=== PATIENT | female | born 1955 | race Caucasian/White ===

== ENCOUNTER 2018-07-04 12:03 | Observation (INO) ==
[2018-07-04 12:08] VITALS: BMI 29.2
[2018-07-04] MEDS: NITROSTAT SL PRN ×2 (12:22→12:24)
[2018-07-04 12:29] LABS: BASOPHILS % (AUTO) 0.5 % (0.2-1.0); HEMATOCRIT 42.9 % (36.0-47.0); HEMOGLOBIN 14.4 g/dL (12.0-16.0); LYMPHOCYTES # (AUTO) 3.2 X10^3/uL (1.3-2.9); LYMPHOCYTES % (AUTO) 48.5 % (21.0-51.0); MEAN CORPUSCULAR HEMOGLOBIN 29.5 pg (27.0-34.0); MEAN CORPUSCULAR HGB CONC 33.7 g/dL (33.0-35.0); MEAN CORPUSCULAR VOLUME 87.6 fL (80.0-100.0); MEAN PLATELET VOLUME 8.1 fL (7.4-11.0); MONOCYTES # (AUTO) 0.5 x10^3/uL (0.3-0.8); MONOCYTES % (AUTO) 7.1 % (0.0-13.0); NEUTROPHILS # (AUTO) 2.9 x10^3/uL (2.2-4.8); NEUTROPHILS % (AUTO) 43.9 % (42.0-75.0); PLATELET COUNT 237 X10^3/uL (150.0-450.0); RED CELL DISTRIBUTION WIDTH 13.3 % (11.6-16.5); WHITE BLOOD COUNT 6.6 X10^3/uL (3.6-10.0)
[2018-07-04] MEDS ORDERED: NS 1000 ML 1,000 ML ONE (12:35)
--- NOTE | 2018-07-04 12:44 | RAD ---
Examination: Chest x-ray. Clinical History: Left-sided chest pain. Technique: A single portable AP view of the chest was obtained. Comparison: None available. Findings: The lungs are hypoventilated, precluding evaluation of the heart size. No pneumothorax or pleural effusion is noted. No pulmonary opacity is noted. The bones appear diffusely osteopenic. Degenerative changes are noted in the spine. No acute osseous abnormality is noted. Monitor leads are seen overlying the chest. Impression: 1. Hypoventilated lungs. Reported By:
[2018-07-04] MEDS: NS 1000 ML 1,000 ML IV SCH ×2 (12:47→21:15)
[2018-07-04 12:51] LABS: BLOOD UREA NITROGEN 10 mg/dL (7-18); CALCIUM 9.5 mg/dL (8.5-10.1); CARBON DIOXIDE 28.2 mmol/L (21-32); CHLORIDE 104 mmol/L (98-107); SODIUM 142 mmol/L (136-145); TROPONIN I 0.05 ng/mL (0-1.5); eGFR NON BLACK RACES > 60 (>60)
[2018-07-04 12:52] LABS: ALANINE AMINOTRANSFERASE 22 Units/L (12-78); ALBUMIN 4.4 g/dL (3.4-5.0); ALKALINE PHOSPHATASE 51 Units/L (46-116); ASPARTATE AMINO TRANSFERASE 24 Units/L (15-37); CKMB % 1.4 % (<4); CREATINE KINASE 72 Units/L (26-192); MAGNESIUM 1.9 mg/dL (1.7-2.9); TOTAL PROTEIN 7.5 g/dL (6.4-8.2)
--- NOTE | 2018-07-04 12:54 | DR.CP ---
HPI Time Seen Time Seen by Provider: 07/04/18 12:47 PCP Primary Care Physician: MAJOR PAUL Complaint Chief Complaint Doctor Comments: Patient reports that she had mid sternal chest pain today. She has been having left carotid pain. She is being evaluated by her architecture analyst Dr. Tipton. She has 50cclusion of the left carotid.. She denies a history of cardiac pain. She denies cigarette or alcohol use. Chief Complaint:: "CHEST PAINS AND NAUSEA, NONO RADIATING AT THE MOMENT" Self Treatment fo Chief Complaint: ASA 81 1 THIS AM Source History Provided: Patient and Parent Mode of Arrival Mode of Arrival: Ambulatory Timing Onset of Chief Complaint: 07/04/18 Location Chest Pain Radiation Location: Back Associated Signs and Symptoms Associated Signs and Symptoms: None PMH PMH Past Medical History: Yes Past Medical History: Asthma and Hypertension Past Medical History Comment: TIA Past Surgical History: Yes Surgical History: Tonsillectomy Past Surgical History Comment: TUBAL Family History History of Family Medical Conditions: Yes Family Medical History: Cancer, [place], Coronary Artery Disease, Heart Failure and Hypertension Social History Does patient currently use any type of tobacco product: No Have you used tobacco products in the last 12 months: No Type of Tobacco Use: None Does any household member use tobacco: No Alcohol Use: None Do you use any recreational Drugs:: No Lives With: Alone Lives Where: Home infectious screening In the last 2 months have you had wt loss of >10#?: NO Have you had fever, night sweats or hemotysis?: No Have you traveled outside the country in the last 6 months?: No Isolation: Standard PE Vitals Vitals: Temperature 97.9 F Pulse Rate [Right Brachial] 55 Pulse Rate 61 Respiratory Rate 17 Blood Pressure [Right Arm] 128/60 Blood Pressure 187/77 O2 Sat by Pulse Oximetry 97 General General Appearance: Alert and In No Apparent Distress Head Head Exam: Normal Inspection, Atraumatic and Normocephalic Eyes Eye exam: Normal Appearance and PERRL ENT ENT Exam: Normal Exam, Normal Oropharynx and Normal External Ear Exam Chest Chest Inspection: Normal Inspection and Symmetric Chest Wall Rise Respiratory Respiratory Exam: Normal Lung Sounds Bilat Respiratory Exam: Bilateral: Clear to Auscultation Cardiovascular Cardiovascular Exam: Regular Rate, Normal Rhythm and Normal Heart Sounds Pulse: Normal, Radial and Femoral Abdominal Exam Abdominal Exam: Normal Inspection and Normal Bowel Sounds Abdominal Tenderness: RUQ Extremities Extremities Exam: Normal Inspection and Full ROM Back Back Exam: Normal Inspection, Full ROM and (R) CVA Tenderness Neurologic Neurological Exam: Alert, Oriented X3 and CN II-XII Intact Psychiatric Psychiatric Exam: Normal Affect and Normal Mood Skin Skin Exam: Warm, Dry and Intact COURSE Consultation Called: 13:50 Consultation Comments: Dr. Cornejo agreed to admit for further evaluation ROR Labs Reviewed Laboratory Results Reviewed?: Yes Result Diagrams: 07/05/18 04:25 07/05/18 04:25 Laboratory: WBC 4.9 X10^3/uL (3.6-10.0) 07/05/18 04:25 RBC 4.36 X10^6/uL (3.5-5.4) 07/05/18 04:25 Hgb 13.1 g/dL (12.0-16.0) 07/05/18 04:25 Hct 38.3 % (36.0-47.0) 07/05/18 04:25 MCV 87.8 fL (80.0-100.0) 07/05/18 04:25 MCH 29.9 pg (27.0-34.0) 07/05/18 04:25 MCHC 34.1 g/dL (33.0-35.0) 07/05/18 04:25 RDW 13.5 % (11.6-16.5) 07/05/18 04:25 Plt Count 201 X10^3/uL (150.0-450.0) 07/05/18 04:25 MPV 8.4 fL (7.4-11.0) 07/05/18 04:25 Neut % (Auto) 32.2 % (42.0-75.0) L 07/05/18 04:25 Lymph % (Auto) 59.1 % (21.0-51.0) H 07/05/18 04:25 Nye % (Auto) 8.1 % (0.0-13.0) 07/05/18 04:25 Eos % (Auto) 0.0 % (0.9-2.9) L 07/05/18 04:25 Baso % (Auto) 0.6 % (0.2-1.0) 07/05/18 04:25 Neut # (Auto) 1.6 x10^3/uL (2.2-4.8) L 07/05/18 04:25 Lymph # (Auto) 2.9 X10^3/uL (1.3-2.9) 07/05/18 04:25 Nye # (Auto) 0.4 x10^3/uL (0.3-0.8) 07/05/18 04:25 Eos # (Auto) 0.0 x10^3/uL (0.0-0.2) 07/05/18 04:25 Baso # (Auto) 0.0 X10^3/uL (0.0-0.1) 07/05/18 04:25 Absolute Nucleated RBC 0.1 /100WBC 07/05/18 04:25 INR Target Range - 07/04/18 12:23 INR 0.96 (0.8-1.3) 07/04/18 12:23 APTT 25.4 SECONDS (22.9-36.5) 07/04/18 12:23 PTT Comment - 07/04/18 12:23 D-Dimer 149 ng/mL (0-400) 07/04/18 12:23 Sodium 143 mmol/L (136-145) 07/05/18 04:25 Corrected Sodium TNP 07/05/18 04:25 Potassium 3.8 mmol/L (3.5-5.1) 07/05/18 04:25 Chloride 107 mmol/L (98-107) 07/05/18 04:25 Carbon Dioxide 24.8 mmol/L (21-32) 07/05/18 04:25 BUN 8 mg/dL (7-18) 07/05/18 04:25 Creatinine 0.52 mg/dL (0.55-1.02) L 07/05/18 04:25 Est GFR (MDRD) Af Amer > 60 (>60) 07/05/18 04:25 Est GFR (MDRD) Non-Af > 60 (>60) 07/05/18 04:25 Glucose 82 mg/dL (65-99) 07/05/18 04:25 Calcium 8.6 mg/dL (8.5-10.1) 07/05/18 04:25 Corrected Calcium TNP 07/05/18 04:25 Magnesium 1.6 mg/dL (1.7-2.9) L 07/05/18 04:25 Total Bilirubin 0.70 mg/dL (0.2-1.0) 07/05/18 04:25 AST 17 Units/L (15-37) 07/05/18 04:25 ALT 18 Units/L (12-78) 07/05/18 04:25 Alkaline Phosphatase 45 Units/L (46-116) L 07/05/18 04:25 Creatine Kinase 41 Units/L (26-192) 07/05/18 00:40 CK-MB (CK-2) < 1.0 ng/mL (0-4.0) 07/05/18 00:40 CK/CKMB % Calc 2.4 % (<4) 07/05/18 00:40 Troponin I 0.07 ng/mL (0-1.5) 07/05/18 00:40 Total Protein 6.1 g/dL (6.4-8.2) L 07/05/18 04:25 Albumin 3.4 g/dL (3.4-5.0) 07/05/18 04:25 Globulin 2.7 g/dL (2.5-4.5) 07/05/18 04:25 Albumin/Globulin Ratio 1.3 Ratio (1.1-2.1) 07/05/18 04:25 Specimen Type Clean catch urine 07/04/18 13:38 Urine Color Straw (YELLOW) 07/04/18 13:38 Urine Appearance Clear (CLEAR) 07/04/18 13:38 Urine pH 7.0 (5.0 - 8.0) 07/04/18 13:38 Ur Specific [place] 1.010 (1.000-1.030) 07/04/18 13:38 Urine Protein Negative (NEGATIVE) 07/04/18 13:38 Urine Glucose (UA) Negative (NEGATIVE) 07/04/18 13:38 Urine Ketones Negative (NEGATIVE) 07/04/18 13:38 Urine Occult Blood Negative (NEGATIVE) 07/04/18 13:38 Urine Nitrite Negative (NEGATIVE) 07/04/18 13:38 Urine Bilirubin Negative (NEGATIVE) 07/04/18 13:38 Urine Urobilinogen Normal (NORMAL) 07/04/18 13:38 Ur Leukocyte Esterase 1+ (NEGATIVE) 07/04/18 13:38 Urine RBC 0-2 /HPF (NONE SEEN) 07/04/18 13:38 Urine WBC 0-2 /HPF (NONE SEEN) 07/04/18 13:38 Ur Squamous Epith Cells Negative /HPF (NEGATIVE) 07/04/18 13:38 Urine Bacteria Negative /HPF (NEGATIVE) 07/04/18 13:38 Ur Culture Indicated? No/not indicated 07/04/18 13:38 Other Results Comments: The lungs are hypoventilated, precluding evaluation of the heart size. No pneumothorax or pleural effusion is noted. No pulmonary opacity is noted. The bones appear diffusely osteopenic. Degenerative changes are noted in the spine. No acute osaseous abnormality is noted. XRAY XRAY Interpreted by: Radiologist ADDITIONAL NOTES Additional Notes Additional Notes: Patient admitted for chest pain protocol
[2018-07-04 13:56] LABS: BILIRUBIN,URINE NEGATIVE (NEGATIVE); BLOOD/HEMOGLOBIN,URINE NEGATIVE (NEGATIVE); GLUCOSE, URINE NEGATIVE (NEGATIVE); KETONES,URINE NEGATIVE (NEGATIVE); LEUKOCYTE ESTERASE ,URINE 1+ (NEGATIVE); NITRITES,URINE NEGATIVE (NEGATIVE); PROTEIN,URINE NEGATIVE (NEGATIVE); UROBILINOGEN,URINE NORMAL (NORMAL)
[2018-07-04 14:03] LABS: APPEARANCE,URINE CLEAR (CLEAR); BACTERIA,URINE NEGATIVE /HPF (NEGATIVE); COLOR,URINE STRAW (YELLOW); RBC,URINE 0-2 /HPF (NONE SEEN); SQUAMOUS EPITHELIAL CELL,UR NEGATIVE /HPF (NEGATIVE)
[2018-07-04 19:07] LABS: CREATINE KINASE 50 Units/L (26-192); CREATINE KINASE MB < 1.0 ng/mL (0-4.0); TROPONIN I 0.05 ng/mL (0-1.5)
[2018-07-04] MEDS ORDERED: TYLENOL 325 MG TAB PO PRN (19:14)
[2018-07-04] MEDS ORDERED: LIPITOR TAB 20 MG PO SCH (21:00)
[2018-07-05 01:25] LABS: CKMB % 2.4 % (<4); CREATINE KINASE 41 Units/L (26-192); CREATINE KINASE MB < 1.0 ng/mL (0-4.0); TROPONIN I 0.07 ng/mL (0-1.5)
[2018-07-05 05:15] LABS: BASOPHILS % (AUTO) 0.6 % (0.2-1.0); HEMATOCRIT 38.3 % (36.0-47.0); HEMOGLOBIN 13.1 g/dL (12.0-16.0); LYMPHOCYTES # (AUTO) 2.9 X10^3/uL (1.3-2.9); LYMPHOCYTES % (AUTO) 59.1 % (21.0-51.0); MEAN CORPUSCULAR HEMOGLOBIN 29.9 pg (27.0-34.0); MEAN CORPUSCULAR HGB CONC 34.1 g/dL (33.0-35.0); MEAN CORPUSCULAR VOLUME 87.8 fL (80.0-100.0); MEAN PLATELET VOLUME 8.4 fL (7.4-11.0); MONOCYTES # (AUTO) 0.4 x10^3/uL (0.3-0.8); MONOCYTES % (AUTO) 8.1 % (0.0-13.0); NEUTROPHILS # (AUTO) 1.6 x10^3/uL (2.2-4.8); NEUTROPHILS % (AUTO) 32.2 % (42.0-75.0); PLATELET COUNT 201 X10^3/uL (150.0-450.0); RED BLOOD COUNT 4.36 X10^6/uL (3.5-5.4); RED CELL DISTRIBUTION WIDTH 13.5 % (11.6-16.5); WHITE BLOOD COUNT 4.9 X10^3/uL (3.6-10.0)
[2018-07-05 05:36] LABS: ALANINE AMINOTRANSFERASE 18 Units/L (12-78); ALBUMIN 3.4 g/dL (3.4-5.0); ALKALINE PHOSPHATASE 45 Units/L (46-116); ASPARTATE AMINO TRANSFERASE 17 Units/L (15-37); BLOOD UREA NITROGEN 8 mg/dL (7-18); CALCIUM 8.6 mg/dL (8.5-10.1); CARBON DIOXIDE 24.8 mmol/L (21-32); CHLORIDE 107 mmol/L (98-107); CREATININE 0.52 mg/dL (0.55-1.02); SODIUM 143 mmol/L (136-145); TOTAL PROTEIN 6.1 g/dL (6.4-8.2); eGFR NON BLACK RACES > 60 (>60)
[2018-07-05] MEDS: NS 1000 ML 1,000 ML IV SCH ×2 (05:40→18:39)
[2018-07-05] MEDS ORDERED: POTASSIUM CHLORIDE LIQ 20 MEQ UDC PO PRN (05:48)
[2018-07-05] MEDS ORDERED: KLOR-CON PO PRN (05:48)
[2018-07-05] MEDS ORDERED: K-DUR TAB 20 MEQ PO PRN (05:48)
[2018-07-05] MEDS ORDERED: MICRO K EXTEN CAP 10 MEQ PO PRN (05:48)
[2018-07-05] MEDS ORDERED: POTASSIUM CHL 60 MEQ/NS 0.45% 500 ML IV PRN (05:48)
[2018-07-05] MEDS ORDERED: POTASSIUM CHL 40 MEQ/NS 0.45% 500 ML IV PRN (05:48)
[2018-07-05] MEDS ORDERED: K-RIDER 10 MEQ/NS 100 ML 10 MEQ/100 ML BAG IV PRN (05:48)
[2018-07-05] MEDS ORDERED: LIPITOR TAB 20 MG PO SCH (09:00)
[2018-07-05] MEDS ORDERED: PLAVIX PO SCH (09:00)
[2018-07-05] MEDS ORDERED: ASPIRIN EC 81 MG PO SCH (09:00)
[2018-07-05 10:04] LABS: CKMB % 2.2 % (<4); CREATINE KINASE 45 Units/L (26-192); CREATINE KINASE MB < 1.0 ng/mL (0-4.0); TROPONIN I 0.08 ng/mL (0-1.5)
[2018-07-05] MEDS: MAGNESIUM SULFATE 1 GRAM/100 mL PREMIX 1 GM/100 ML BAG IV PRN ×2 (13:02→14:07)
--- NOTE | 2018-07-05 13:39 | DR.H&P ---
H&P - History & Physical for Day of: H&P Date: 07/04/18 - Chief Complaint Chief Complaint: CHEST PAIN - History of Present Illness History of Present Illness: 62 WF ER ADMISSION AFTER PRESENTING WITH CO CHEST PAIN AND SOB. PT STATES HER CP WAS SHARP AND SHE TOOK 2 NITROGLYCERINE FOR PAIN RELIEF. PT HAS HX OF HTN AND HYPERLIPIDEMIA. PT WAS RECENTLY EVALUATED BY DR WHITAKER, GRAPE CRUSHER FROM [facility] AND SET UP FOR STRESS TEST LATER THIS WEEK. PT CO INCREASED OCHOA OVER LAST FEW WEEKS. PT HAS FAMILY HX OF NM AND CAD. PT REPORTS TAKING ASPIRIN AND CHOLESTEROL MEDICATION PRESCRIBED. PLAN TO ADMIT TO R/O AMI, CARDIAC WORK UP - Past Medical History Past Medical History: Asthma, Dyslipidemia, Hypertension - Past Surgical History Surgical History: Tonsillectomy - Family History Family Medical History: Cancer, [place], Coronary Artery Disease (PT'S MOTHER HAD NM, AND TRIPLE BYPASS), Heart Failure, Hypertension - Social History Does patient currently use any type of tobacco product: No Have you used tobacco products in the last 12 months: No Type of Tobacco Use: None Does any household member use tobacco: No Alcohol Use: None Drug Use: Prescription Drugs - Medications Home Medications: No Known Drug Allergies Allergy (Verified 07/04/18 12:48) CONTINUE taking the following medications aspirin 81 mg PO DAILY 07/04/18 [History] atorvastatin 20 mg PO DAILY 07/04/18 [History] clopidogrel 75 mg PO DAILY 07/04/18 [History] - Review of Systems Constitutional: Weakness Eyes: No Symptoms Reported ENT: No Symptoms Reported Respiratory: SOB with Excertion Cardiovascular: Chest Pain Gastrointestinal: No Symptoms Reported Genitourinary: No Symptoms Reported Musculoskeletal: No Symptoms Reported Skin: No Symptoms Reported Neurological: No Symptoms Reported - Physical Exam Vital Signs: Temperature 98.5 F Pulse Rate [Right Brachial] 66 Pulse Rate 61 Respiratory Rate 18 Blood Pressure [Right Arm] 143/75 Blood Pressure 187/77 O2 Sat by Pulse Oximetry 98 Oriented: Normal Eyes: Normal Ear: Normal Nose: Normal Throat: Normal Respiratory: Clear Throughout Cardiovascular: Normal : Normal Auscultation: Bowel Sounds: Normal, Absent Palpation: Normal Skin: Normal Musculoskeletal: Normal Psychiatric: Normal Mood Description: Calm Speech Pattern: Clear - Assessment/Plan (1) Chest pain Status: Acute Plan: ADMIT, SERIAL CE AND EKGS. BP AND CONTINUOUS CARDIAC MONITORING. RESUME HOME MEDICATION, ASPIRIN AND STATIN. ADMISSION CXR, SUPPLEMENTAL O2 (2) Hypertension Status: Acute (3) OCHOA (dyspnea on exertion) Status: Acute (4) Hyperlipidemia Status: Acute - Allergies Allergies/Adverse Reactions: Allergies Allergy/AdvReac Type Severity Reaction Status Date / Time No Known Drug Allergies Allergy Verified 07/04/18 12:48
[2018-07-05 15:19] LABS: CKMB % 2.4 % (<4); CREATINE KINASE 41 Units/L (26-192); CREATINE KINASE MB < 1.0 ng/mL (0-4.0); TROPONIN I 0.08 ng/mL (0-1.5)
[2018-07-05 20:11] VITALS: BP 167/71
== END 2018-07-05 20:05 | disposition short-term general hospital (02) ==
LOC: MED/SURG 12:03 → ER 12:03 → MED/SURG 15:26
PROVIDERS: ADMIT Internal Medicine; ATTEND Internal Medicine
DX: I10 Essential (primary) hypertension; R07.89 Other chest pain; R06.02 Shortness of breath; R94.31 Abnormal electrocardiogram [ECG] [EKG]; E78.2 Mixed hyperlipidemia
CPT/HCPCS: 36415; 71010; 71045; 80053; 81001; 82550; 82553; 83735; 84484; 85025; 85378; 85610; 85730; 93005; 93010; 94760; 96365; 96367; 96374; 99282; 99284; A4222; G0378; J3475; J3490; J7030

== ENCOUNTER 2024-09-24 12:19 | Observation (INO) ==
[2024-09-24 12:34] VITALS: BMI 26.4
--- NOTE | 2024-09-24 12:40 | EKG ---
Test Reason : chest pain Blood Pressure : */* mmHG Vent. Rate : 69 BPM Atrial Rate : 69 BPM P-R Int : 148 ms QRS Dur : 80 ms QT Int : 408 ms P-R-T Axes : 54 9 31 degrees QTc Int : 437 ms Normal sinus rhythm Septal infarct , age undetermined Abnormal ECG No previous ECGs available Confirmed by Anshu Chamorro MD ([id number]) on 09/25/2024 7:31:54 AM Referred By: Confirmed By: Anshu Chamorro MD
[2024-09-24 12:48] LABS: BASOPHILS # (AUTO) 0.1 X10^3/uL (0.0-0.1); EOSINOPHILS # (AUTO) 0.1 x10^3/uL (0.0-0.2); EOSINOPHILS % (AUTO) 1.6 % (0.9-2.9); HEMATOCRIT 37.8 % (36.0-47.0); HEMOGLOBIN 12.8 g/dL (12.0-16.0); LYMPHOCYTES # (AUTO) 2.4 X10^3/uL (1.3-2.9); LYMPHOCYTES % (AUTO) 45.4 % (21.0-51.0); MEAN CORPUSCULAR HEMOGLOBIN 30.6 pg (27.0-34.0); MEAN PLATELET VOLUME 7.2 fL (7.4-11.0); MONOCYTES # (AUTO) 0.6 x10^3/uL (0.3-0.8); MONOCYTES % (AUTO) 10.8 % (0.0-13.0); NEUTROPHILS # (AUTO) 2.2 x10^3/uL (2.2-4.8); NEUTROPHILS % (AUTO) 41.2 % (42.0-75.0); PLATELET COUNT 251 X10^3/uL (150.0-450.0); RED CELL DISTRIBUTION WIDTH 13.7 % (11.6-16.5); WHITE BLOOD COUNT 5.2 X10^3/uL (3.6-10.0)
[2024-09-24 13:03] LABS: ALANINE AMINOTRANSFERASE 19 Units/L (12-78); ALBUMIN 4.1 g/dL (3.4-5.0); ALKALINE PHOSPHATASE 57 Units/L (46-116); ASPARTATE AMINO TRANSFERASE 19 Units/L (15-37); BLOOD UREA NITROGEN 9 mg/dL (7-18); CALCIUM 9.4 mg/dL (8.5-10.1); CARBON DIOXIDE 29.2 mmol/L (21-32); CHLORIDE 96 mmol/L (98-107); CREATINE KINASE 39 Units/L (26-192); CREATININE 0.95 mg/dL (0.55-1.02); GLUCOSE 91 mg/dL (65-99); POTASSIUM 3.6 mmol/L (3.5-5.1); SODIUM 135 mmol/L (136-145); TOTAL PROTEIN 7.6 g/dL (6.4-8.2); eGFR NON BLACK RACES > 60 (>60)
[2024-09-24 13:06] LABS: INR 1.08 (0.8-1.3)
--- NOTE | 2024-09-24 14:00 | DR.CP ---
HPI Time Seen Time Seen by Provider: 09/24/24 12:23 PCP Primary Care Physician: ENID MENDEZ Comment HPI Comment: Patient with complaint of sudden onset chest pain today. Pain is on left side radiating to the left arm. She does have history of coronary artery disease with stents for which she takes Plavix. Patient also has history of hypertension, hyperlipidemia, GERD and allergies. Complaint Chief Complaint:: Patient states about 40 min ago she had sudden onset chest pain on the left side radiating into her left arm and left side she describes it as a sharp constant pain and it hurts worse when she breaths in and out. COVID-19 Coronavirus risk:travel/contact w/high risk person: No Has patient experienced Coronavirus symptoms: No Source History Provided: Patient Mode of Arrival Mode of Arrival: Wheelchair Timing Onset of Chief Complaint: 09/24/24 Location Chest Pain Radiation Location: Left Arm and Left Shoulder Associated Signs and Symptoms Associated Signs and Symptoms: Shortness of Breath PMH PMH Past Medical History: Yes Past Medical History: Asthma and Dyslipidemia Past Medical History Comment: TIA Past Surgical History: Yes Surgical History: Angioplasty/Stents and Tonsillectomy Family History History of Family Medical Conditions: Yes Family Medical History: Cancer, [place], Coronary Artery Disease, Heart Failure and H ypertension Social History Does patient currently use any type of tobacco product: No Have you used tobacco products in the last 12 months: No Type of Tobacco Use: None Does any household member use tobacco: No Alcohol Use: None Do you use any recreational Drugs:: No Lives With: Family Lives Where: Home Travel Risk Coronavirus risk:travel/contact w/high risk person: No Has patient experienced Coronavirus symptoms: No Infectious screening In the last 2 months have you had wt loss of >10#?: NO Have you had fever, night sweats or hemotysis?: No Have you traveled outside the country in the last 6 months?: No Isolation: Standard ROS Review of Systems Constitutional: No Symptoms Reported Eyes: No Symptoms Reported ENTM: No Symptoms Reported Respiratoy: No Symptoms Reported; negative Short of Breath or Wheezing Cardiovascular: See HPI and Chest Pain; negative Edema, Palpitations or Syncope Gastrointestinal/Abdominal: No Symptoms Reported Genitourinary: No Symptoms Reported Neurological: No Symptoms Reported Musculoskeletal: No Symptoms Reported Integumentary: No Symptoms Reported Hematologic/Lymphatic: No Symptoms Reported Endocrine: No Symptoms Reported Psychiatric: No Symptoms Reported All Other Systems: Reviewed and Negative PE Vitals Vitals: Vital Signs Temperature 97.7 F Pulse Rate 72 Pulse Rate 61 Pulse Rate 65 Pulse Rate 57 Pulse Rate 58 Pulse Rate 62 Pulse Rate 60 Pulse Rate 64 Pulse Rate 67 Pulse Rate 67 Pulse Rate 72 Pulse Rate 77 Respiratory Rate 54 Respiratory Rate 13 Respiratory Rate 15 Respiratory Rate 18 Respiratory Rate 18 Respiratory Rate 14 Respiratory Rate 8 Respiratory Rate 25 Respiratory Rate 21 Respiratory Rate 36 Respiratory Rate 27 Respiratory Rate 29 Blood Pressure 171/69 Blood Pressure 153/69 Blood Pressure 163/72 Blood Pressure 164/73 Blood Pressure 181/74 Blood Pressure 198/89 O2 Sat by Pulse Oximetry 100 O2 Sat by Pulse Oximetry 100 O2 Sat by Pulse Oximetry 100 O2 Sat by Pulse Oximetry 98 O2 Sat by Pulse Oximetry 100 O2 Sat by Pulse Oximetry 100 O2 Sat by Pulse Oximetry 99 O2 Sat by Pulse Oximetry 100 O2 Sat by Pulse Oximetry 100 O2 Sat by Pulse Oximetry 100 General Limitations: No Limitations General Appearance: Alert and In No Apparent Distress Head Head Exam: Normal Inspection Eyes Eye exam: Normal Appearance ENT ENT Exam: Normal Exam Chest Chest Inspection: Normal Inspection Respiratory Respiratory Exam: Normal Lung Sounds Bilat Cardiovascular Cardiovascular Exam: Regular Rate and Normal Rhythm Pulse: Normal Edema: Normal Abdominal Exam Abdominal Exam: Normal Inspection, Normal Bowel Sounds and Soft Extremities Extremities Exam: Normal Inspection Back Back Exam: Normal Inspection Neurologic Neurological Exam: Alert and Oriented X3 Psychiatric Psychiatric Exam: Normal Affect and Normal Mood Skin Skin Exam: Warm, Dry, Intact and Normal Color COURSE Treatment Treatment: Discussed results of workup with patient and family. Heart score is 6. Discussed admission for chest pain rule out. Consultation Called: 15:30 Consultation Comments: Discussed case with Dr. Henning. She is agreeable to admission. ROR Labs Reviewed 09/24/24 12:40 09/24/24 12:40 Laboratory: WBC 5.2 X10^3/uL (3.6-10.0) 09/24/24 12:40 RBC 4.20 X10^6/uL (3.5-5.4) 09/24/24 12:40 Hgb 12.8 g/dL (12.0-16.0) 09/24/24 12:40 Hct 37.8 % (36.0-47.0) 09/24/24 12:40 MCV 90.0 fL (80.0-100.0) 09/24/24 12:40 MCH 30.6 pg (27.0-34.0) 09/24/24 12:40 MCHC 34.0 g/dL (33.0-35.0) 09/24/24 12:40 RDW 13.7 % (11.6-16.5) 09/24/24 12:40 Plt Count 251 X10^3/uL (150.0-450.0) 09/24/24 12:40 MPV 7.2 fL (7.4-11.0) L 09/24/24 12:40 Neut % (Auto) 41.2 % (42.0-75.0) L 09/24/24 12:40 Lymph % (Auto) 45.4 % (21.0-51.0) 09/24/24 12:40 [place] % (Auto) 10.8 % (0.0-13.0) 09/24/24 12:40 Eos % (Auto) 1.6 % (0.9-2.9) 09/24/24 12:40 Baso % (Auto) 1.0 % (0.2-1.0) 09/24/24 12:40 Neut # (Auto) 2.2 x10^3/uL (2.2-4.8) 09/24/24 12:40 Lymph # (Auto) 2.4 X10^3/uL (1.3-2.9) 09/24/24 12:40 [place] # (Auto) 0.6 x10^3/uL (0.3-0.8) 09/24/24 12:40 Eos # (Auto) 0.1 x10^3/uL (0.0-0.2) 09/24/24 12:40 Baso # (Auto) 0.1 X10^3/uL (0.0-0.1) 09/24/24 12:40 Absolute Nucleated RBC 0.1 /100WBC 09/24/24 12:40 PT 13.7 SECONDS (11.8-14.3) 09/24/24 12:40 INR Target Range - 09/24/24 12:40 INR 1.08 (0.8-1.3) 09/24/24 12:40 APTT 24.8 SECONDS (22.9-36.5) 09/24/24 12:40 PTT Comment - 09/24/24 12:40 Sodium 135 mmol/L (136-145) L 09/24/24 12:40 Corrected Sodium TNP 09/24/24 12:40 Potassium 3.6 mmol/L (3.5-5.1) 09/24/24 12:40 Chloride 96 mmol/L (98-107) L 09/24/24 12:40 Carbon Dioxide 29.2 mmol/L (21-32) 09/24/24 12:40 BUN 9 mg/dL (7-18) 09/24/24 12:40 Creatinine 0.95 mg/dL (0.55-1.02) 09/24/24 12:40 Est GFR (MDRD) Af Amer > 60 (>60) 09/24/24 12:40 Est GFR (MDRD) Non-Af > 60 (>60) 09/24/24 12:40 Glucose 91 mg/dL (65-99) 09/24/24 12:40 Calcium 9.4 mg/dL (8.5-10.1) 09/24/24 12:40 Corrected Calcium TNP 09/24/24 12:40 Total Bilirubin 0.60 mg/dL (0.2-1.0) 09/24/24 12:40 AST 19 Units/L (15-37) 09/24/24 12:40 ALT 19 Units/L (12-78) 09/24/24 12:40 Alkaline Phosphatase 57 Units/L (46-116) 09/24/24 12:40 Creatine Kinase 39 Units/L (26-192) 09/24/24 12:40 Troponin I High Sens 57.8 ng/L (4.0-60.0) 09/24/24 14:40 Total Protein 7.6 g/dL (6.4-8.2) 09/24/24 12:40 Albumin 4.1 g/dL (3.4-5.0) 09/24/24 12:40 Globulin 3.5 g/dL (2.5-4.5) 09/24/24 12:40 Albumin/Globulin Ratio 1.2 Ratio (1.1-2.1) 09/24/24 12:40 Opioid Opioid Risk Tool Age (Velasquez box if 16-45): No History of Preadolescent Sexual Abuse: No Total: 0 Total Score Risk Category: Low Risk Copyright: [facility] predicting aberrant behaviors Discharge Plan Diagnosis Discharge Problem: Chest pain, Hypertension, Hyperlipidemia, Presence of stent in coronary artery in patient with coronary artery disease Discharge Plan Patient Disposition: ADMITTED INPATIENT Condition: Stable Prescriptions: No Action atorvastatin 40 mg tablet See Rx Instructions .ROUTE .COMPLEX Qty: 90 0RF Dose Instruction: TAKE 1 TABLET BY MOUTH EVERYDAY AT BEDTIME Rx Instructions: TAKE 1 TABLET BY MOUTH EVERYDAY AT BEDTIME clopidogrel 75 mg tablet 75 mg PO QDAY 90 Days Qty: 90 0RF lisinopril 40 mg tablet 40 mg PO QDAY 90 Days Qty: 90 0RF Rx Instructions: FreeTextSi Tablet daily; Refills: 1; Provider: Sudarshan Richardson loratadine 10 mg tablet 10 mg PO QDAY 90 Days Qty: 90 0RF Rx Instructions: FreeTextSi (one) Tablet daily; Refills: 3; Provider: Sudarshan Richardson montelukast 10 mg tablet 10 mg PO QDAY 90 Days Qty: 90 0RF pantoprazole [Protonix] 40 mg tablet,delayed release (DR/EC) 40 mg PO QDAY 90 Days Qty: 90 0RF Rx Instructions: FreeTextSi (one) Tablet daily; Refills: 1; Provider: Alfredo Reinoso Health Concerns: Post Hospitalization: new medications and changes needed to prevent readmission or further decline. Pt educated and given instructions on all concerns. Plan of Treatment: Continue with present treatment and follow up plan. Pt is to keep follow up appointment as instructed and take medications as ordered. Orders to Discharge Patient Discharge Orders: Transfer (Routine); Ordered 09/24/24 Ordered By: Lauro Borrego Follow ups/Referrals Follow ups/Referrals: Dakota Mccollum [Primary Care Provider] - 3 days Instructions Stand Alone Forms: Find Help Web Site, Post Hospital Follow Up Care
[2024-09-24] MEDS: LIPITOR TAB 40 MG PO SCH (21:46)
--- NOTE | 2024-09-24 22:21 | EKG ---
Test Reason : chest pain Blood Pressure : */* mmHG Vent. Rate : 73 BPM Atrial Rate : 73 BPM P-R Int : 150 ms QRS Dur : 82 ms QT Int : 418 ms P-R-T Axes : 56 22 39 degrees QTc Int : 460 ms Normal sinus rhythm Normal ECG When compared with ECG of 24-SEP-2024 12:36, (Unconfirmed) Criteria for Septal infarct are no longer present Confirmed by Anshu Chamorro MD ([id number]) on 09/25/2024 7:30:51 AM Referred By: Confirmed By: Anshu Chamorro MD
--- NOTE | 2024-09-25 03:27 | EKG ---
Test Reason : chest pain Blood Pressure : */* mmHG Vent. Rate : 54 BPM Atrial Rate : 54 BPM P-R Int : 144 ms QRS Dur : 80 ms QT Int : 454 ms P-R-T Axes : 48 35 52 degrees QTc Int : 430 ms Sinus bradycardia Otherwise normal ECG When compared with ECG of 24-SEP-2024 21:58, (Unconfirmed) No significant change was found Confirmed by Anshu Chamorro MD ([id number]) on 09/25/2024 7:29:45 AM Referred By: Confirmed By: Anshu Chamorro MD
[2024-09-25 07:05] LABS: BASOPHILS % (AUTO) 0.6 % (0.2-1.0); EOSINOPHILS # (AUTO) 0.1 x10^3/uL (0.0-0.2); EOSINOPHILS % (AUTO) 2.2 % (0.9-2.9); HEMATOCRIT 36.3 % (36.0-47.0); HEMOGLOBIN 12.5 g/dL (12.0-16.0); LYMPHOCYTES # (AUTO) 1.8 X10^3/uL (1.3-2.9); LYMPHOCYTES % (AUTO) 39.9 % (21.0-51.0); MEAN CORPUSCULAR HGB CONC 34.4 g/dL (33.0-35.0); MEAN CORPUSCULAR VOLUME 90.3 fL (80.0-100.0); MEAN PLATELET VOLUME 7.4 fL (7.4-11.0); MONOCYTES # (AUTO) 0.4 x10^3/uL (0.3-0.8); MONOCYTES % (AUTO) 9.6 % (0.0-13.0); NEUTROPHILS # (AUTO) 2.2 x10^3/uL (2.2-4.8); NEUTROPHILS % (AUTO) 47.7 % (42.0-75.0); PLATELET COUNT 211 X10^3/uL (150.0-450.0); RED BLOOD COUNT 4.02 X10^6/uL (3.5-5.4); RED CELL DISTRIBUTION WIDTH 13.5 % (11.6-16.5); WHITE BLOOD COUNT 4.6 X10^3/uL (3.6-10.0)
--- NOTE | 2024-09-25 07:11 | RAD ---
EXAM: Portable chest HISTORY: Chest pain COMPARISON: None FINDINGS: Heart is mildly enlarged. No congestive heart failure is noted. Suzanna are normal. Aorta is pleura l effusions identified. Bony thorax is unremarkable.. Lung ordoñez are clear. No IMPRESSION: Mild cardiomegaly without congestive heart failure Lungs clear THIS IS AN ELECTRONICALLY VERIFIED FINAL REPORT 09/25/2024 7:09 AM - Electronically signed by Prieto Wylie MD
[2024-09-25 07:39] LABS: ALANINE AMINOTRANSFERASE 18 Units/L (12-78); ALBUMIN 3.8 g/dL (3.4-5.0); ALKALINE PHOSPHATASE 50 Units/L (46-116); ASPARTATE AMINO TRANSFERASE 24 Units/L (15-37); BLOOD UREA NITROGEN 9 mg/dL (7-18); CALCIUM 9.4 mg/dL (8.5-10.1); CARBON DIOXIDE 26.4 mmol/L (21-32); CHLORIDE 99 mmol/L (98-107); CHOL/HDL RATIO 2.1 (0.0-5.0); CHOLESTEROL 158 mg/dL (0-200); CREATININE 0.81 mg/dL (0.55-1.02); GLUCOSE 87 mg/dL (65-99); HDL CHOLESTEROL 75 mg/dL (40-60); MAGNESIUM 1.9 mg/dL (2.0-2.9); SODIUM 134 mmol/L (136-145); TOTAL PROTEIN 6.9 g/dL (6.4-8.2); TRIGLYCERIDES 35 mg/dL (0-150); eGFR NON BLACK RACES > 60 (>60)
[2024-09-25] MEDS: ZESTRIL TAB 40 MG PO SCH (09:10)
[2024-09-25] MEDS: PROTONIX TAB 40 MG PO SCH (09:10)
[2024-09-25] MEDS: PLAVIX PO SCH (09:10)
[2024-09-25 10:11] VITALS: RESP 20; TEMP 98.2
[2024-09-25 13:37] VITALS: BP 123/61; PULSE 70; O2SAT 97
--- NOTE | 2024-09-26 13:26 | DR.SSS ---
SHORT STAY SUMMARY Admission Date Date of Admission: 09/25/24 Discharge Date Discharge Date: 09/24/24 Admission Diagnoses Admission Diagnoses: Chest pain r/o ACS CAD HTN Dyspnea Discharge Diagnoses Discharge Diagnoses: Chest pain rule out CAD HTN HLD Chief Complaint Chief Complaint: chest pain, SOB History of Present Illness History of Present Illness: Ms. Berger is a 68-year-old female with a history of CAD status post PCI, hypertension, hyperlipidemia and GERD presented with sudden onset of chest pain. She reports having left-sided chest pain radiating to the left arm. She also reports having some shortness of breath. She does see cardiology once a year but has not been seen recently. She has not had any echocardiogram recently. ER workup included negative troponin and no EKG changes. She was admitted for further management. Past Medical History Past Medical History: Asthma and Dyslipidemia Past Surgical History Surgical History: Angioplasty/Stents Allergies Allergies Allergy/AdvReac Type Severity Reaction Status Date / Time No Known Drug Allergies Allergy Unknown Verified 09/24/24 12:29 Medications Home Medications: No Known Drug Allergies Allergy (Unknown, Verified 09/24/24 12:29) Family History Family Medical History: OR Social History Does patient currently use any type of tobacco product: No Have you used tobacco products in the last 12 months: No Type of Tobacco Use: None Does any household member use tobacco: No Alcohol Use: None Drug Use: None Review of Systems Constitutional: No Symptoms Reported Eyes: No Symptoms Reported ENT: No Symptoms Reported Respiratory: Shortness of Breath Cardiovascular: Chest Pain Gastrointestinal: No Symptoms Reported Genitourinary: No Symptoms Reported Musculoskeletal: No Symptoms Reported Skin: No Symptoms Reported Neurological: No Symptoms Reported Physical Exam Vital Signs: Last Vital Signs Temp 98.2 F 09/25/24 12:00 Pulse 70 09/25/24 12:00 Resp 20 09/25/24 12:00 BP 123/61 09/25/24 12:00 Pulse Ox 97 09/25/24 12:00 O2 Del Method Room Air 09/25/24 12:00 O2 Flow Rate 2 09/24/24 22:00 FiO2 28 09/24/24 22:00 Oriented: Normal Eyes: Normal Throat: Normal Respiratory: Clear Throughout Cardiovascular: Normal Auscultation: Bowel Sounds: Normal Tenderness: Normal Skin: Normal Musculoskeletal: Normal Psychiatric: Normal Mood Description: Calm Affect: Normal Speech Pattern: Clear and Appropriate Labs Labs: Laboratory Last Values WBC 4.6 X10^3/uL (3.6-10.0) 09/25/24 05:48 RBC 4.02 X10^6/uL (3.5-5.4) 09/25/24 05:48 Hgb 12.5 g/dL (12.0-16.0) 09/25/24 05:48 Hct 36.3 % (36.0-47.0) 09/25/24 05:48 MCV 90.3 fL (80.0-100.0) 09/25/24 05:48 MCH 31.0 pg (27.0-34.0) 09/25/24 05:48 MCHC 34.4 g/dL (33.0-35.0) 09/25/24 05:48 RDW 13.5 % (11.6-16.5) 09/25/24 05:48 Plt Count 211 X10^3/uL (150.0-450.0) 09/25/24 05:48 MPV 7.4 fL (7.4-11.0) 09/25/24 05:48 Neut % (Auto) 47.7 % (42.0-75.0) 09/25/24 05:48 Lymph % (Auto) 39.9 % (21.0-51.0) 09/25/24 05:48 [place] % (Auto) 9.6 % (0.0-13.0) 09/25/24 05:48 Eos % (Auto) 2.2 % (0.9-2.9) 09/25/24 05:48 Baso % (Auto) 0.6 % (0.2-1.0) 09/25/24 05:48 Neut # (Auto) 2.2 x10^3/uL (2.2-4.8) 09/25/24 05:48 Lymph # (Auto) 1.8 X10^3/uL (1.3-2.9) 09/25/24 05:48 [place] # (Auto) 0.4 x10^3/uL (0.3-0.8) 09/25/24 05:48 Eos # (Auto) 0.1 x10^3/uL (0.0-0.2) 09/25/24 05:48 Baso # (Auto) 0.0 X10^3/uL (0.0-0.1) 09/25/24 05:48 Absolute Nucleated RBC 0.0 /100WBC 09/25/24 05:48 PT 13.7 SECONDS (11.8-14.3) 09/24/24 12:40 INR Target Range - 09/24/24 12:40 INR 1.08 (0.8-1.3) 09/24/24 12:40 APTT 24.8 SECONDS (22.9-36.5) 09/24/24 12:40 PTT Comment - 09/24/24 12:40 Sodium 134 mmol/L (136-145) L 09/25/24 05:48 Corrected Sodium TNP 09/25/24 05:48 Potassium 4.0 mmol/L (3.5-5.1) 09/25/24 05:48 Chloride 99 mmol/L (98-107) 09/25/24 05:48 Carbon Dioxide 26.4 mmol/L (21-32) 09/25/24 05:48 BUN 9 mg/dL (7-18) 09/25/24 05:48 Creatinine 0.81 mg/dL (0.55-1.02) 09/25/24 05:48 Est GFR (MDRD) Af Amer > 60 (>60) 09/25/24 05:48 Est GFR (MDRD) Non-Af > 60 (>60) 09/25/24 05:48 Glucose 87 mg/dL (65-99) 09/25/24 05:48 Calcium 9.4 mg/dL (8.5-10.1) 09/25/24 05:48 Corrected Calcium TNP 09/25/24 05:48 Magnesium 1.9 mg/dL (2.0-2.9) L 09/25/24 05:48 Total Bilirubin 0.70 mg/dL (0.2-1.0) 09/25/24 05:48 AST 24 Units/L (15-37) 09/25/24 05:48 ALT 18 Units/L (12-78) 09/25/24 05:48 Alkaline Phosphatase 50 Units/L (46-116) 09/25/24 05:48 Creatine Kinase 45 Units/L (26-192) 09/24/24 14:40 Troponin I High Sens 65.0 ng/L (4.0-60.0) H* 09/25/24 05:48 Total Protein 6.9 g/dL (6.4-8.2) 09/25/24 05:48 Albumin 3.8 g/dL (3.4-5.0) 09/25/24 05:48 Globulin 3.1 g/dL (2.5-4.5) 09/25/24 05:48 Albumin/Globulin Ratio 1.2 Ratio (1.1-2.1) 09/25/24 05:48 Triglycerides 35 mg/dL (0-150) 09/25/24 05:48 Cholesterol 158 mg/dL (0-200) 09/25/24 05:48 LDL Cholesterol, Calc 76 mg/dL (0-100) 09/25/24 05:48 HDL Cholesterol 75 mg/dL (40-60) H 09/25/24 05:48 Cholesterol/HDL Ratio 2.1 (0.0-5.0) 09/25/24 05:48 Hospital Course Hospital Course: She was admitted with telemetry and monitored. Her labs were monitored daily and replaced as needed. Her third troponin was slightly elevated at 65, no EKG changes. She denied having any chest pain or shortness of breath the next day. Her troponin levels did not increase any further. Echocardiogram was also done, see scanned report. Patient was on room air and ambulating in the room. She denied having any cardiopulmonary symptoms. She was stable to be discharged home and follow-up with PCP. Her vitals remained stable. Discharge Medications Discharge Medications: Prescriptions: Discharge Plan Discharge Plan Patient Disposition: , SELF-CARE Condition: Stable Health Concerns: Post Hospitalization: new medications and changes needed to prevent readmission or further decline. Pt educated and given instructions on all concerns. Care Plan Goals: Problem: Pain/Alteration in Comfort Goal: Improve/ Resolve Pain; Achieve Pain Tolerance Instructions: Take pain medications as prescribed. Contact your primary care provider if your pain is unrelieved or worsens. Follow up with primary care provider as directed. Plan of Treatment: Continue with present treatment and follow up plan. Pt is to keep follow up appointment as instructed and take medications as ordered. Prescription drug monitoring program results: PDMP reviewed and no concerns identified Prescriptions: Continued atorvastatin 40 mg tablet See Rx Instructions .ROUTE .COMPLEX Qty: 90 0RF Dose Instruction: TAKE 1 TABLET BY MOUTH EVERYDAY AT BEDTIME Rx Instructions: TAKE 1 TABLET BY MOUTH EVERYDAY AT BEDTIME clopidogrel 75 mg tablet 75 mg PO QDAY 90 Days Qty: 90 0RF lisinopril 40 mg tablet 40 mg PO QDAY 90 Days Qty: 90 0RF Rx Instructions: FreeTextSi Tablet daily; Refills: 1; Provider: Sudarshan Richardson loratadine 10 mg tablet 10 mg PO QDAY 90 Days Qty: 90 0RF Rx Instructions: FreeTextSi (one) Tablet daily; Refills: 3; Provider: Sudarshan Richardson montelukast 10 mg tablet 10 mg PO QDAY 90 Days Qty: 90 0RF pantoprazole [Protonix] 40 mg tablet,delayed release (DR/EC) 40 mg PO QDAY 90 Days Qty: 90 0RF Rx Instructions: FreeTextSi (one) Tablet daily; Refills: 1; Provider: Alfredo Reinoso Orders to Discharge Patient Discharge Orders: Discharge (Routine); Ordered 09/25/24 Ordered By: Madison Knox Follow ups/Referrals Follow ups/Referrals: Dakota Mccollum [Primary Care Provider] - 10/02/24 10:00 am Instructions Instructions: Nonspecific Chest Pain, Adult, [id number] Stand Alone Forms: Excuse From Work or School, Find Help Web Site, Post Hospital Follow Up Care
== END 2024-09-25 15:26 | disposition home or self-care (01) ==
LOC: ER 12:19 → MED/SURG 12:19
PROVIDERS: ADMIT Internal Medicine; ATTEND Internal Medicine
DX: R00.1 Bradycardia, unspecified; Z86.73 Personal history of transient ischemic attack (TIA), and cerebral infarction without residual deficits; E78.5 Hyperlipidemia, unspecified; Z79.01 Long term (current) use of anticoagulants; R06.02 Shortness of breath; R07.89 Other chest pain; K21.9 Gastro-esophageal reflux disease without esophagitis; I25.10 Atherosclerotic heart disease of native coronary artery without angina pectoris; R79.89 Other specified abnormal findings of blood chemistry; R94.31 Abnormal electrocardiogram [ECG] [EKG]; E87.1 Hypo-osmolality and hyponatremia; I10 Essential (primary) hypertension